=== PATIENT | female | born 1995 | race Caucasian/White ===

== ENCOUNTER 2023-12-19 23:24 | Inpatient (IN) | payer OTHER ==
[2023-12-19] MEDS ORDERED: METHYLERGONOVINE 0.2 MG/ML 1 ML AMP IM PRN (23:41)
[2023-12-19] MEDS ORDERED: miSOPROStoL 200 MCG TAB RECTAL PRN (23:41)
[2023-12-19] MEDS ORDERED: miSOPROStoL 200 MCG TAB PO PRN (23:41)
[2023-12-19] MEDS ORDERED: TERBUTALINE 1 MG/ML VIAL SQ PRN (23:41)
[2023-12-19] MEDS ORDERED: CARBOPROST TROMETHAMINE 250 MCG/ML 1 ML AMP IM PRN (23:41)
[2023-12-19] MEDS ORDERED: LIDOCAINE 0.5% (PF) 5 MG/ML (50 ML SDV) SQ PRN (23:41)
[2023-12-19] MEDS ORDERED: TRANEXAMIC 1,000 MG/100ML-NACL 1,000 MG in EMPTY BAG 1 BAG IV PRN (23:41)
[2023-12-20] MEDS: OXYTOCIN 10 UNIT/ML 1 ML VIAL IM PRN (00:05)
--- NOTE | 2023-12-20 00:44 | P.HPOB ---
History of Present Illness H&P Date: 12/20/23 Chief Complaint: contractions Ms. Harvey is a 28 year old at 39 weeks and 4 days gestation with EDC of 12-23-2023 by LMP consistent with 8 week US who presents with regular, painful uterine contractions found to be 8 centimeters dilated with a bulging bag. Her has been complicated by the finding of an absent or hypoplastic nasal bone on anatomy US. For this finding, consultationt with MFM and NIPT screening was recommended to the patient. However, the patient did decline. The fetus is estimated to be average for gestational age. Obstetric history: 1 FTVD - IOL at 38 weeks for gestational HTN, male, no other complications; 1 SAB work-up: blood type O positive, antibody screen negative, rubella immune, VDRL non-reactive, HBsAg negative, HIV negative, gonorrhea negative, chlamydia negative, 1 hour GTT wnl, GBS negative. Past Medical History History of Any Multi-Drug Resistant Organisms: None Reported Smoking Status: Never smoker Medications and Allergies Home Medications Medication Instructions Recorded Confirmed Type No Known Home Medications 12/19/23 12/19/23 History Allergies Allergy/AdvReac Type Severity Reaction Status Date / Time No Known Allergies Allergy Verified 12/19/23 23:35 Exam Intake and Output 12/19/23 12/19/23 12/20/23 14:59 22:59 06:59 Other: Weight 77.111 kg Focused physical exam is performed. This is a healthy-appearing in no apparent distress. Breathing is non-labored. Abdomen is gravid and non-tender. Cervical exam is 8/90/-1 with bulging bag of water per OB RN. Extremities non- tender and non-edematous. heart tones are Category I and tocometer is graphing contractions every 2-4 minutes. Assessment and Plan Assessment: 28 year old at 39 weeks and 4 days in active labor Plan: Admit, clear liquid diet, expectant management, continuous EFM and tocometer. Anticipate vaginal delivery.
[2023-12-20 00:45] LABS: Anisocytosis Slight; Basophils % (A) 0 %; Eosinophils % (A) 0 %; HCT 28.9 % (34.0-46.0); HGB 8.8 gm/dL (11.4-16.0); Hypochromasia Marked; Lymphocytes # (A) 0.6 k/uL (1.0-4.8); Lymphocytes % (A) 6 %; MCH 22.2 pg (25.0-35.0); MCHC 30.4 g/dL (31.0-37.0); MCV 72.8 fL (80.0-100.0); Mean Platelet Volume 8.9; Microcytosis Moderate; Monocytes # (A) 0.3 k/uL (0-1.0); Monocytes % (A) 3 %; Neutrophils # (A) 9.5 k/uL (1.3-7.7); Neutrophils % (A) 90 %; Platelet Count 268 k/uL (150-450); Poikilocytosis Slight; RBC 3.96 m/uL (3.80-5.40); RDW 17.3 % (11.5-15.5); WBC 10.6 k/uL (3.8-10.6)
[2023-12-20] MEDS ORDERED: SIMETHICONE 80 MG CHEWABLE PO PRN (00:48)
[2023-12-20] MEDS ORDERED: BENZOCAINE/MENTHOL SPRAY 1 GM/SPRAY AEROSOL TOPICAL PRN (00:48)
[2023-12-20] MEDS ORDERED: diphenhydrAMINE 25 MG CAP PO PRN (00:48)
[2023-12-20] MEDS ORDERED: LANOLIN CREAM 1 GM TUBE TOPICAL PRN (00:48)
[2023-12-20] MEDS ORDERED: diphenhydrAMINE 50 MG/ML 1 ML VIAL IVP PRN ×2 (00:48)
[2023-12-20] MEDS ORDERED: diphenhydrAMINE 50 MG CAP PO PRN (00:48)
[2023-12-20] MEDS ORDERED: HYDROCORTISONE 2.5% RECTAL CREAM 30 GM TUBE RECTAL PRN (00:48)
[2023-12-20] MEDS ORDERED: ZOLPIDEM 5 MG TAB PO PRN (00:48)
--- NOTE | 2023-12-20 00:48 | P.PROBDLV ---
Vaginal Delivery Note - . Vaginal Delivery Note: DATE OF SERVICE: 12/20/2023 PROCEDURE: Normal Vaginal Delivery ATTENDING: Dr. Sindhu Linares MD ESTIMATED BLOOD LOSS: 200 mL FINDINGS: VMI, Apgars 8/9. Weight 8 pounds and 6 ounces PROCEDURE: Ms. Harvey is a 28 year old at 39 weeks and 4 days presenting to labor and delivery in active labor at 8 centimeters dilation with a bulging bag at 2340. The has been complicated by hypoplastic appearing nasal bone on anatomy US. For further details, please review the admitting H&P. The patient had prompt SROM at 2348. She then delivered preciptiously prior to my arrival at the hospital at 2351. A tight nuchal cord was noted at delivery and there was rupture of the umbilical cord as the was expelled through this. The infant was noted to be spontaneously crying. Placenta was delivered whole with gentle cord traction at 0005. Oxytocin IM was given to facilitate uterine tone. Uterine fundus was found to be firm and below the umbilicus upon fundal massage. Thorough examination of the cervix, vagina, periurethral area, and perineum revealed a [id number] right labia majorum laceration. This was infiltrated with lidocaine and repaired with 3-0 Vicryl in an interrupted fashion. The patient is stable and allowed to begin the bonding process.
[2023-12-20] MEDS: IBUPROFEN 800 MG TAB PO SCH (00:57)
[2023-12-20] MEDS: LACTATED RINGERS 1,000 ML IV SCH (00:58)
[2023-12-20] MEDS: ACETAMINOPHEN TAB 500 MG TAB PO SCH (06:46)
[2023-12-20] MEDS: SENNOSIDES-DOCUSATE SODIUM 1 EACH TAB PO SCH (08:04)
--- NOTE | 2023-12-20 13:24 | P.DS ---
Providers Date of admission: 12/19/23 23:41 Expected date of discharge: 12/20/23 Attending physician: Sindhu Linares MD Primary care physician: Stated None Hospital Course: Ms. Harvey is a 28 year old now PPD#1 s/p precipitous . The patient is doing well this morning and had no acute events overnight. She has no complaints this morning. She reports minimal lochia, passing flatus, voiding without difficulty, ambulating, and eating/drinking without nausea or vomiting. Infant doing well at bedside, s/p circumcision. She denies chest pain, shortness of breathing, fevers, or chills overnight. She denies pain or swelling in the legs. restrictions are reviewed with the patient including pelvic rest for 6 weeks. The patient is encouraged to call the office if she experiences any heavy bleeding, foul-smelling discharge, breast complaints, or any if she has any other concerns. She plans to use OTC Motrin and Tylenol as needed for pain. She also has ferrous sulfate at home, she will take this every other day for iron deficiency anemia. She will follow up in the office with in 6 weeks for exam. All questions are answered. Assessment: 28 year old now PPD#1 s/p Patient Condition at Discharge: Good Plan - Discharge Summary New Discharge Prescriptions: No Action No Known Home Medications Discharge Medication List No Known Home Medications 12/19/23 [History] Follow up Appointment(s)/Referral(s): Sindhu Linares MD [STAFF PHYSICIAN] - 01/30/24 1:15 pm Activity/Diet/Wound Care/Special Instructions: Instructions 1. Do not begin any exercise program for 3 weeks. 2. Do not resume sexual relations for 6 weeks or longer if uncomfortable. 3. You may take tub baths or showers at any time. 4. You may use tampons if desired after 6 weeks. 5. Keep any areas repaired with stitches clean and dry. 6. If you are not nursing, wear a good fitting, supportive bra during the day and limit fluid intake for at least 1 week to prevent breast engorgement. 7. Call the office, , within the next week to make appointment for your 6 week checkup if it has not already been made. 8. Report any of the following occurrences to the doctor promptly: a. Heavy, excessive bleeding b. Chills, fever c. Burning or frequency of urination d. Pain or redness and breasts if nursing e. Increasing pain or swelling of vulva (stitches). In addition to the above instructions, the following additional should be followed: 1. No heavy lifting or straining (exercising) until after 6 week checkup. 2. Keep abdominal incision clean and dry: You may wear a dressing if more comfortable. 3. Make office appointment for 2 weeks after delivery date. Discharge Disposition: HOME SELF-CARE
[2023-12-20] MEDS: FERROUS SULFATE 325 MG TAB PO SCH (21:18)
[2023-12-21 00:15] VITALS: BP 123/75; PULSE 87; RESP 18; TEMP 98.7
== END 2023-12-21 00:44 | disposition home or self-care (01) | DRG 807 ==
LOC: FBPOP 23:24 → 4FBP 23:41
PROVIDERS: ADMIT Obstetrics & Gynecology; ATTEND Obstetrics & Gynecology
PROC: 10E0XZZ Delivery of Products of Conception, External Approach (ICD-10-PCS; principal; 2023-12-19)
DX: O62.3 Precipitate labor (principal); Z37.0 Single live birth; O69.1XX0 Labor and delivery complicated by cord around neck, with compression, not applicable or unspecified; Z3A.39 39 weeks gestation of pregnancy
CPT/HCPCS: 85025; 86850; 86900; 86901; 99213